=== PATIENT | female | born 1960 | race Caucasian/White ===

== ENCOUNTER → 2017-09-05 | Outpatient (CLI) | payer MEDICARE, OTHER ==
[~2017-09-05] MED LIST: ACCUNEB SO1.25 MG/1; ACETAMINOPHEN325 M1 PO; ADVAIR 250-501 EACH INH; ALBUTEROL INH; ALLEGRA ALLERGY60 MG; ALLEGRA60 MG PO; ALPRAZOLAM 0.50.5 MG PO; ALPRAZOLAM1 MG PO; AMBIEN 10 MG TA10 MG PO; AMOXICILLI250 MG/51 PO; AMOXICILLI400 MG/5 M PO; ANUSOL-HC25 MG RECTAL; AUGMENTIN 500-1 EACH PO; AUGMENTIN250 MG/5 M PO; B12INJ; BENADRYL25 MG PO; CITRATE OF MAG296 M1 PO; COMBIVENT INH; CREON DR 12,001 EACH; CYANOCOBALAM1000 MCG PO; CYPROHEPTADINE 44 M1; CYPROHEPTADINE 44 MG PO; CYTOMEL 5MCG TA5 MC1; CYTOMEL 5MCG TA5 MC1 NG; CYTOMEL 5MCG TA5 MCG NG; DESYREL100 MG PO; DESYREL50 MG; DESYREL50 MG PO; DILAUDID 4 MG TA4 M1 PO; DOLOPHINE HCL5 MG PO; DOXYCYCLINE 10100 MG PO; DUONEB 2.5-0.5 M3 ML INH; FEXOFENADINE HC60 MG PO; FLONASE 0.05%50 MCG NASAL; GAS-X180 MG; HYDROXYCHLOROQ200 M1 PO; LAMICTAL100 MG PO; LANSOPRAZOLE30 MG PO; LASIX 20 MG TAB20 MG PO; LEVAQUIN 500 M500 M1 PO; LEVAQUIN 500 M500 M2 PO; LEVOTHYROXIN0.025 MG PO; LINZESS290 MCG PO; MACROBID 100 M100 M1 PO; MEDROL DOSPAK21 TAB PO; METHADONE HCL5 MG PO; MIRTAZAPINE7.5 MG PO; MUCUS RELIEF600 MG PO; NORCO 5-325 TA1 EACH; NORCO 5-325 TA1 EACH PO; NORTRIPTYLINE H10 M1; NORTRIPTYLINE H25 M3 PO; NORTRIPTYLINE H50 MG PO; NYSTATIN 100,0015 G1 TP; NYSTATIN-TRIAMC15 GM TP; ONDANSETRON HCL4 M2 PO; ONDANSETRON HCL4 M3 PO; ONDANSETRON HCL8 MG PO; ONDANSETRON ODT4 MG PO; PAMELOR25 MG PO; PANCREAZE 10,51 EACH; PANCREAZE 10,51 EACH PO; PERCOCET; PERCOCET 5-3251 EACH; PHENAZOPYRIDIN200 M2 PO; PREDNISONE 10 M10 M1 PO; PREDNISONE 20 M20 M1 PO; PREVACID 24HR15 MG PO; PREVACID 30MG C30 M1 PO; PREVACID15 MG PO; PREVACID30 MG PO; PROAIR HFA8.5 GM PO; REMERON15 MG PO; SINGULAIR 10 MG10 M1 PO; SYNTHROID50 MCG PO; SYNTHROID88 MCG PO; TIZANIDINE HCL4 M1 PO; TOBREX5 ML OPHTHALMIC; TORADOL 10 MG T10 MG; TORADOL 10 MG T10 MG PO; TRAZODONE 150150 M1 PO; TRAZODONE HCL100 MG PO; TUSNEL LIQUID3840 ML PO; Trazodone PO; ULTRAM ER200 MG; URISPAS100 MG PO; VENTOLIN HFA 1818 GM INH; VITAMIN D 5050000 I1 PO; XANAX 0.5 MG0.5 M1 PO; XANAX XR0.5 MG PO; XANAX XR1 MG; XANAX XR1 MG PO; XANAX1 MG PO; ZANAFLEX4 M1; ZANAFLEX4 M1 PO; ZENPEP DR 10,01 EACH PO; ZOFRAN ODT4 MG PO; ZOFRAN4 MG DISSOLVE; ZOFRAN4 MG PO; ZOFRAN8 MG GT; ZOFRAN8 MG PO; ZOLOFT25 MG PO; ZPAK PO; [UNRECOGNIZED DRUG - OTHER]; [UNRECOGNIZED DRUG - OTHER]; [UNRECOGNIZED DRUG - OTHER] OTIC
[2017-09-05 16:47] LABS: ABSOLUTE EOSINOPHILS 0.1 thou/uL (0.0-0.7); ABSOLUTE MONOCYTES 0.3 thou/uL (0.0-1.2); BASOPHILS 0.6 %; EOSINOPHILS 1.6 %; HEMOGLOBIN 13.6 gm/dL (12.0-15.0); LYMPHOCYTES 14.9 %; MCH 28.1 pg (26.0-34.0); MCHC 33.2 g/dL (28.0-37.0); MCV 84.6 fL (80.0-100.0); MONOCYTES 4.2 %; MPV 7.2 fl. (7.2-11.1); NUCLEATED RBCS 0 /100WBC; PLATELET COUNT* 294 thou/uL (150-400); POLYS 78.7 %; RBC 4.84 mil/uL (4.20-5.00); RDW-CV 15.1 % (10.5-14.5); WBC 6.4 thou/uL (4.0-11.0)
[2017-09-05 17:01] LABS: ALBUMIN 3.8 g/dL (3.4-5.0); CALCIUM 8.4 mg/dL (8.5-10.1); CREATININE 0.7 mg/dL (0.6-1.3); POTASSIUM 4.1 mmol/L (3.5-5.1); TOTAL BILIRUBIN 0.3 mg/dL (<0.1-1.0); TOTAL PROTEIN 7.1 g/dL (6.4-8.2)
[2017-09-05 17:54] LABS: ESR (SEDRATE) 10 mm/hr (0-30)
[2017-09-11 10:24] LABS: % SATURATION 15 % (20-39); IRON 55 ug/dL (50-175)
== END ==
LOC: M.ULTRA 15:21
PROVIDERS: Nurse Practitioner Family
DX: E01.0 Iodine-deficiency related diffuse (endemic) goiter (principal); E55.9 Vitamin D deficiency, unspecified; I88.9 Nonspecific lymphadenitis, unspecified; D51.8 Other vitamin B12 deficiency anemias; R79.89 Other specified abnormal findings of blood chemistry; R53.83 Other fatigue; R22.1 Localized swelling, mass and lump, neck

== ENCOUNTER 2017-09-13 08:31 | Emergency (ER) | payer MEDICARE, OTHER ==
[~2017-09-13] VITALS: Ht 154.9 cm; Wt 68.0 kg
[~2017-09-13 08:31] MED LIST changes: -DOXYCYCLINE 10100 MG PO; -HYDROXYCHLOROQ200 M1 PO; -SYNTHROID88 MCG PO; -XANAX1 MG PO; -[UNRECOGNIZED DRUG - OTHER] OTIC
[2017-09-13] MEDS ORDERED: DOXYCYCLINE 10100 MG PO (08:47)
[2017-09-13] MEDS ORDERED: XANAX1 MG PO (08:47)
[2017-09-13] MEDS ORDERED: SYNTHROID88 MCG PO (08:47)
[2017-09-13 10:50] VITALS: BP 106/52
== END 2017-09-13 11:16 | disposition home or self-care (01) ==
LOC: M.ERS 08:31
DX: S52.592A Other fractures of lower end of left radius, initial encounter for closed fracture (principal); J45.909 Unspecified asthma, uncomplicated; M19.90 Unspecified osteoarthritis, unspecified site; F41.9 Anxiety disorder, unspecified; Z87.440 Personal history of urinary (tract) infections; Z87.442 Personal history of urinary calculi; Z88.5 Allergy status to narcotic agent; Z88.8 Allergy status to other drugs, medicaments and biological substances; Z88.2 Allergy status to sulfonamides; X50.1XXA Overexertion from prolonged static or awkward postures, initial encounter; Y93.89 Activity, other specified; Y92.89 Other specified places as the place of occurrence of the external cause; Y99.8 Other external cause status

== ENCOUNTER 2017-09-15 15:58 | Emergency (ER) | payer MEDICARE, OTHER ==
[~2017-09-15] VITALS: Ht 154.9 cm; Wt 68.0 kg
[~2017-09-15 15:58] MED LIST changes: +DOXYCYCLINE 10100 MG PO; +SYNTHROID88 MCG PO; +XANAX1 MG PO
[2017-09-15 16:09] VITALS: BP 141/60
== END 2017-09-15 16:57 | disposition home or self-care (01) ==
LOC: M.ERS 15:58
DX: S66.812A Strain of other specified muscles, fascia and tendons at wrist and hand level, left hand, initial encounter (principal); K31.84 Gastroparesis; J45.909 Unspecified asthma, uncomplicated; F41.9 Anxiety disorder, unspecified; Z87.442 Personal history of urinary calculi; Z88.5 Allergy status to narcotic agent; Z88.8 Allergy status to other drugs, medicaments and biological substances; Z88.2 Allergy status to sulfonamides; X58.XXXA Exposure to other specified factors, initial encounter; Y93.89 Activity, other specified; Y92.89 Other specified places as the place of occurrence of the external cause; Y99.8 Other external cause status

== ENCOUNTER → 2017-11-21 | Outpatient (CLI) | payer MEDICARE, OTHER ==
[~2017-11-21] MED LIST changes: +HYDROXYCHLOROQ200 M1 PO; +[UNRECOGNIZED DRUG - OTHER] OTIC
== END ==
LOC: M.RAD 13:37
DX: Z12.31 Encounter for screening mammogram for malignant neoplasm of breast (principal)

== ENCOUNTER → 2018-03-01 | Outpatient (CLI) | payer MEDICARE, OTHER | LOC: M.MRI 08:08 | DX: K11.20 Sialoadenitis, unspecified (principal); J45.909 Unspecified asthma, uncomplicated; M19.90 Unspecified osteoarthritis, unspecified site ==

== ENCOUNTER 2018-03-14 13:28 | Emergency (ER) | payer MEDICARE, OTHER ==
[~2018-03-14] VITALS: Ht 154.9 cm; Wt 68.0 kg
[~2018-03-14 13:28] MED LIST changes: -HYDROXYCHLOROQ200 M1 PO; -[UNRECOGNIZED DRUG - OTHER] OTIC
[2018-03-14] MEDS ORDERED: HYDROXYCHLOROQ200 M1 PO (13:40)
[2018-03-14 13:52] LABS: ABSOLUTE EOSINOPHILS 0.1 thou/uL (0.0-0.7); ABSOLUTE LYMPHOCYTES 1.1 thou/uL (0.8-5.3); ABSOLUTE MONOCYTES 0.5 thou/uL (0.0-1.2); ABSOLUTE NEUTROPHILS 4.1 thou/uL (1.6-8.1); BASOPHILS 0.8 %; EOSINOPHILS 2.4 %; HEMATOCRIT 38.9 % (37.0-47.0); HEMOGLOBIN 13.1 gm/dL (12.0-15.0); LYMPHOCYTES 18.5 %; MCH 28.6 pg (26.0-34.0); MCHC 33.8 g/dL (28.0-37.0); MCV 84.5 fL (80.0-100.0); MONOCYTES 9.1 %; NUCLEATED RBCS 0 /100WBC; PLATELET COUNT* 324 thou/uL (150-400); POLYS 69.2 %; RDW-CV 14.1 % (10.5-14.5); WBC 5.9 thou/uL (4.0-11.0)
[2018-03-14 14:06] LABS: APTT 29.2 Seconds (25.0-31.3); PROTIME 10.1 Seconds (9.20-11.50)
[2018-03-14 14:18] LABS: ANION GAP 6 mmol/L (7-16); BUN 15 mg/dL (7-18); CHLORIDE 107 mmol/L (98-107); CO2 29 mmol/L (21-32); CREATININE 0.8 mg/dL (0.6-1.3); GLUCOSE 108 mg/dL (70-99); POTASSIUM 4.1 mmol/L (3.5-5.1); SODIUM 142 mmol/L (136-145)
[2018-03-14 14:38] LABS: ALBUMIN 3.4 g/dL (3.4-5.0); ALKALINE PHOSPHATASE 58 U/L (46-116); CK-MB MASS < 0.5 ng/mL (<0.5-3.6); LIPASE 136 U/L (73-393); NT-PRO BRAIN NAT PEPTIDE 166 pg/mL (<300); SGOT 12 U/L (15-37); SGPT 14 U/L (30-65); TOTAL BILIRUBIN 0.2 mg/dL (<0.1-1.0); TOTAL PROTEIN 6.6 g/dL (6.4-8.2); TROPONIN-I LEVEL <0.06 ng/mL (<0.06)
[2018-03-14 14:56] VITALS: BP 110/64
--- NOTE | 2018-03-14 15:48 | EKG ---
[place] [address] ELECTROCARDIOGRAM REPORT Name: CLARKE AREVALOSHRAVAN Guerrero Room: [facility]#: [id number] Admission: 03/14/18 Attend Phys: Discharge: 03/14/18 Date of : 58 Report #: [id number] THIS REPORT FOR: //name// [facility] ED Test Date: 2018-03-14 Test Time: 13:34:46 Pat Name: SHRAVAN AREVALO Department: Room: Gender: F Methods Study Analyst: : 1960 Requested By: Yo Harding Order Number: [id number] MD: Agustin Bustillo Measurements Intervals [place] Rate: 63 P: 33 MD: 170 QRS: -19 QRSD: 102 T: 28 QT: 403 QTc: 413 Interpretive Statements Sinus rhythm Possible left atrial enlargement Borderline left axis deviation Low voltage, precordial leads Abnormal R-wave progression, early transition Compared to ECG 03/07/2017 11:31:07 No significant changes Electronically Signed On 03-14-2018 15:48:37 CDT by Agustin Bustillo [email or web address] <ELECTRONICALLY SIGNED> By: Agustin Bustillo MD, FACC 03/14/18 1548 1334 1334 Agustin Bustillo MD, FAC /EPI
== END 2018-03-14 14:58 | disposition home or self-care (01) ==
LOC: M.ERS 13:28
PROVIDERS: Family Medicine
DX: M25.512 Pain in left shoulder (principal); J45.909 Unspecified asthma, uncomplicated; M19.90 Unspecified osteoarthritis, unspecified site; Z87.01 Personal history of pneumonia (recurrent); Z87.440 Personal history of urinary (tract) infections; Z87.442 Personal history of urinary calculi; Z88.2 Allergy status to sulfonamides; Z88.5 Allergy status to narcotic agent; Z88.6 Allergy status to analgesic agent; Z88.8 Allergy status to other drugs, medicaments and biological substances; Z90.710 Acquired absence of both cervix and uterus; Z90.49 Acquired absence of other specified parts of digestive tract

== ENCOUNTER → 2018-03-18 | Outpatient (CLI) | payer MEDICARE, OTHER ==
[~2018-03-18] MED LIST changes: +HYDROXYCHLOROQ200 M1 PO; +[UNRECOGNIZED DRUG - OTHER] OTIC
== END ==
LOC: M.MRI 08:00
DX: M26.623 Arthralgia of bilateral temporomandibular joint (principal); J45.909 Unspecified asthma, uncomplicated; M19.90 Unspecified osteoarthritis, unspecified site

== ENCOUNTER 2018-04-14 12:43 | Emergency (ER) | payer MEDICARE, OTHER ==
[~2018-04-14] VITALS: Ht 154.9 cm; Wt 69.8 kg
[~2018-04-14 12:43] MED LIST changes: -[UNRECOGNIZED DRUG - OTHER] OTIC
[2018-04-14] MEDS ORDERED: HYDROXYCHLOROQ200 M1 PO (12:54)
[2018-04-14] MEDS ORDERED: [UNRECOGNIZED DRUG - OTHER] OTIC (12:56)
[2018-04-14 12:57] LABS: URINE BILIRUBIN NEGATIVE (Negative); URINE BLOOD NEGATIVE (Negative); URINE CLARITY CLEAR; URINE COLOR YELLOW; URINE GLUCOSE-RANDOM NEGATIVE (Negative); URINE KETONES NEGATIVE (Negative); URINE LEUKOCYTES-REFLEX NEGATIVE (Negative); URINE NITRITE-REFLEX NEGATIVE (Negative); URINE PROTEIN NEGATIVE (Negative); URINE SPECIFIC GRAVITY 1.025 (1.005-1.030); URINE UROBILINOGEN 0.2 E.U./dl (0.2-1.0)
[2018-04-14 13:18] LABS: ABSOLUTE EOSINOPHILS 0.1 thou/uL (0.0-0.7); ABSOLUTE LYMPHOCYTES 1.3 thou/uL (0.8-5.3); ABSOLUTE MONOCYTES 0.6 thou/uL (0.0-1.2); ABSOLUTE NEUTROPHILS 4.5 thou/uL (1.6-8.1); BASOPHILS 0.5 %; EOSINOPHILS 1.5 %; HEMATOCRIT 40.9 % (37.0-47.0); HEMOGLOBIN 13.5 gm/dL (12.0-15.0); LYMPHOCYTES 19.4 %; MCH 28.2 pg (26.0-34.0); MCHC 32.9 g/dL (28.0-37.0); MCV 85.5 fL (80.0-100.0); MONOCYTES 9.9 %; MPV 6.7 fl. (7.2-11.1); NUCLEATED RBCS 0 /100WBC; PLATELET COUNT* 319 thou/uL (150-400); POLYS 68.7 %; RBC 4.78 mil/uL (4.20-5.00); RDW-CV 14.4 % (10.5-14.5); WBC 6.5 thou/uL (4.0-11.0)
[2018-04-14 13:26] LABS: CALCIUM 8.3 mg/dL (8.5-10.1); CREATININE 0.8 mg/dL (0.6-1.3)
[2018-04-14 13:30] LABS: ALBUMIN 3.5 g/dL (3.4-5.0); TOTAL BILIRUBIN 0.2 mg/dL (<0.1-1.0); TOTAL PROTEIN 6.7 g/dL (6.4-8.2)
[2018-04-14 15:32] VITALS: BP 111/53
--- NOTE | 2018-04-16 16:50 | EKG ---
[place] [address] ELECTROCARDIOGRAM REPORT Name: BENTYE AREVALOSHRAVAN Guerrero Room: [facility]#: [id number] Admission: 04/14/18 Attend Phys: Discharge: 04/14/18 Date of : 58 Report #: [id number] THIS REPORT FOR: //name// [facility] ED Test Date: 2018-04-14 Test Time: 13:39:08 Pat Name: SHRAVAN AREVALO Department: Room: Gender: F Professor Of Art: : 1960 Requested By: Angelique Morrell Order Number: [id number] MD: Jose Elias Sin Measurements Intervals [place] Rate: 68 P: 34 IN: 162 QRS: -18 QRSD: 114 T: 15 QT: 409 QTc: 436 Interpretive Statements Sinus rhythm Borderline intraventricular conduction delay Low voltage, precordial leads Compared to ECG 03/14/2018 13:34:46 No significant changes Electronically Signed On 04-16-2018 16:49:53 CDT by Jose Elias Sin [email or web address] <ELECTRONICALLY SIGNED> By: Jose Elias iSn MD, [facility] 04/16/18 1649 1339 38 Jose Elias Sin MD, FACC /EPI
== END 2018-04-14 15:32 | disposition home or self-care (01) ==
LOC: M.ERS 12:43
PROVIDERS: Nurse Practitioner Family
DX: R10.12 Left upper quadrant pain (principal); J45.909 Unspecified asthma, uncomplicated; F41.9 Anxiety disorder, unspecified; M46.90 Unspecified inflammatory spondylopathy, site unspecified; Z88.5 Allergy status to narcotic agent; Z88.2 Allergy status to sulfonamides; Z88.8 Allergy status to other drugs, medicaments and biological substances; Z90.710 Acquired absence of both cervix and uterus; Z90.49 Acquired absence of other specified parts of digestive tract; Z87.442 Personal history of urinary calculi; Z87.440 Personal history of urinary (tract) infections

== ENCOUNTER → 2018-06-26 | Outpatient (CLI) | payer MEDICARE, OTHER ==
[~2018-06-26] MED LIST changes: +[UNRECOGNIZED DRUG - OTHER] OTIC
== END ==
LOC: M.ULTRA 06-18 16:02
DX: N64.4 Mastodynia (principal); R22.32 Localized swelling, mass and lump, left upper limb

== ENCOUNTER → 2018-11-18 | Outpatient (CLI) | payer MEDICARE, OTHER ==
[2018-11-18 14:23] LABS: ALBUMIN 3.8 g/dL (3.4-5.0); CALCIUM 8.7 mg/dL (8.5-10.1); CREATININE 0.8 mg/dL (0.6-1.3); POTASSIUM 4.1 mmol/L (3.5-5.1); TOTAL BILIRUBIN 0.3 mg/dL (<0.1-1.0)
== END ==
LOC: M.RAD 13:15
PROVIDERS: Nurse Practitioner Family
DX: M47.816 Spondylosis without myelopathy or radiculopathy, lumbar region (principal); R06.02 Shortness of breath; M47.814 Spondylosis without myelopathy or radiculopathy, thoracic region; M48.07 Spinal stenosis, lumbosacral region; M41.85 Other forms of scoliosis, thoracolumbar region; Z91.81 History of falling

== ENCOUNTER 2018-11-20 10:13 | Emergency (ER) | payer MEDICARE, OTHER ==
[~2018-11-20] VITALS: Ht 154.9 cm; Wt 67.1 kg
[2018-11-20 12:04] VITALS: BP 124/52
== END 2018-11-20 12:06 | disposition home or self-care (01) ==
LOC: M.ERS 10:13
DX: M25.561 Pain in right knee (principal); J45.909 Unspecified asthma, uncomplicated; F41.9 Anxiety disorder, unspecified; M41.9 Scoliosis, unspecified; M06.9 Rheumatoid arthritis, unspecified; K31.84 Gastroparesis; Z86.2 Personal history of diseases of the blood and blood-forming organs and certain disorders involving the immune mechanism; Z88.8 Allergy status to other drugs, medicaments and biological substances; Z87.442 Personal history of urinary calculi; Z91.048 Other nonmedicinal substance allergy status; Z88.5 Allergy status to narcotic agent; Z88.4 Allergy status to anesthetic agent; Z88.2 Allergy status to sulfonamides; Z90.710 Acquired absence of both cervix and uterus; Z90.49 Acquired absence of other specified parts of digestive tract

== ENCOUNTER 2019-02-16 10:58 | Emergency (ER) | payer MEDICARE, OTHER ==
[~2019-02-16] VITALS: Ht 154.9 cm; Wt 67.1 kg
[2019-02-16] MEDS ORDERED: CREON DR 3,0001 EACH PO (11:10)
[2019-02-16 11:35] LABS: URINE BILIRUBIN NEGATIVE (Negative); URINE BLOOD NEGATIVE (Negative); URINE CLARITY CLEAR; URINE COLOR YELLOW; URINE GLUCOSE-RANDOM NEGATIVE (Negative); URINE KETONES NEGATIVE (Negative); URINE LEUKOCYTES-REFLEX NEGATIVE (Negative); URINE NITRITE-REFLEX NEGATIVE (Negative); URINE PROTEIN NEGATIVE (Negative); URINE UROBILINOGEN 0.2 E.U./dl (0.2-1.0)
[2019-02-16 11:37] LABS: ABSOLUTE BASOPHILS 0.1 thou/uL (0.0-0.2); ABSOLUTE EOSINOPHILS 0.2 thou/uL (0.0-0.7); ABSOLUTE LYMPHOCYTES 1.3 thou/uL (0.8-5.3); ABSOLUTE MONOCYTES 0.6 thou/uL (0.0-1.2); ABSOLUTE NEUTROPHILS 3.5 thou/uL (1.6-8.1); EOSINOPHILS 3.7 %; HEMATOCRIT 43.1 % (37.0-47.0); HEMOGLOBIN 14.3 gm/dL (12.0-15.0); MCH 28.4 pg (26.0-34.0); MCHC 33.1 g/dL (28.0-37.0); MONOCYTES 11.2 %; MPV 7.2 fl. (7.2-11.1); NUCLEATED RBCS 0 /100WBC; PLATELET COUNT* 365 thou/uL (150-400); POLYS 61.1 %; RBC 5.02 mil/uL (4.20-5.00); WBC 5.8 thou/uL (4.0-11.0)
[2019-02-16 11:48] LABS: CALCIUM 8.6 mg/dL (8.5-10.1); CREATININE 0.7 mg/dL (0.6-1.3)
[2019-02-16 11:52] LABS: ALBUMIN 3.8 g/dL (3.4-5.0); TOTAL BILIRUBIN 0.3 mg/dL (<0.1-1.0); TOTAL PROTEIN 7.2 g/dL (6.4-8.2)
[2019-02-16 13:42] VITALS: BP 96/43
== END 2019-02-16 13:42 | disposition home or self-care (01) ==
LOC: M.ERS 10:58
PROVIDERS: Physician Assistant
DX: S16.1XXA Strain of muscle, fascia and tendon at neck level, initial encounter (principal); S70.01XA Contusion of right hip, initial encounter; J98.11 Atelectasis; J98.59 Other diseases of mediastinum, not elsewhere classified; J39.8 Other specified diseases of upper respiratory tract; R51 Headache; M25.561 Pain in right knee; R10.32 Left lower quadrant pain; F41.9 Anxiety disorder, unspecified; J45.909 Unspecified asthma, uncomplicated; M41.9 Scoliosis, unspecified; M35.00 Sjogren syndrome, unspecified; M06.9 Rheumatoid arthritis, unspecified; G89.29 Other chronic pain; M54.5 Low back pain; M54.2 Cervicalgia; Z87.442 Personal history of urinary calculi; Z87.440 Personal history of urinary (tract) infections; Z98.890 Other specified postprocedural states; Z90.49 Acquired absence of other specified parts of digestive tract; Z90.710 Acquired absence of both cervix and uterus; Z93.1 Gastrostomy status; Z88.5 Allergy status to narcotic agent; Z88.2 Allergy status to sulfonamides; Z88.8 Allergy status to other drugs, medicaments and biological substances; Z88.3 Allergy status to other anti-infective agents; W18.39XA Other fall on same level, initial encounter; Y92.89 Other specified places as the place of occurrence of the external cause; Y93.89 Activity, other specified; Y99.8 Other external cause status

== ENCOUNTER 2019-07-27 10:26 | Emergency (ER) | payer MEDICARE, OTHER ==
[~2019-07-27] VITALS: Ht 154.9 cm; Wt 68.0 kg
[~2019-07-27 10:26] MED LIST changes: +CREON DR 3,0001 EACH PO
[2019-07-27 10:42] LABS: URINE BILIRUBIN NEGATIVE (Negative); URINE BLOOD NEGATIVE (Negative); URINE CLARITY CLEAR; URINE COLOR YELLOW; URINE GLUCOSE-RANDOM NEGATIVE (Negative); URINE KETONES NEGATIVE (Negative); URINE LEUKOCYTES-REFLEX NEGATIVE (Negative); URINE NITRITE-REFLEX NEGATIVE (Negative); URINE PROTEIN NEGATIVE (Negative); URINE SPECIFIC GRAVITY <= 1.005 (1.005-1.030); URINE UROBILINOGEN 0.2 E.U./dl (0.2-1.0)
[2019-07-27 11:01] LABS: ABSOLUTE EOSINOPHILS 0.2 thou/uL (0.0-0.7); ABSOLUTE MONOCYTES 0.7 thou/uL (0.0-1.2); ABSOLUTE NEUTROPHILS 3.5 thou/uL (1.6-8.1); BASOPHILS 0.7 %; EOSINOPHILS 3.1 %; HEMATOCRIT 39.7 % (37.0-47.0); HEMOGLOBIN 13.7 gm/dL (12.0-15.0); LYMPHOCYTES 17.9 %; MCH 28.7 pg (26.0-34.0); MCHC 34.5 g/dL (28.0-37.0); MCV 83.2 fL (80.0-100.0); MONOCYTES 12.7 %; NUCLEATED RBCS 0 /100WBC; PLATELET COUNT* 309 thou/uL (150-400); POLYS 65.6 %; RBC 4.77 mil/uL (4.20-5.00); RDW-CV 14.2 % (10.5-14.5); WBC 5.3 thou/uL (4.0-11.0)
[2019-07-27 11:10] LABS: CALCIUM 8.1 mg/dL (8.5-10.1); CREATININE 0.9 mg/dL (0.6-1.3); POTASSIUM 4.1 mmol/L (3.5-5.1)
[2019-07-27 11:14] LABS: ALBUMIN 3.5 g/dL (3.4-5.0); TOTAL BILIRUBIN 0.4 mg/dL (<0.1-1.0); TOTAL PROTEIN 6.9 g/dL (6.4-8.2)
[2019-07-27 11:44] VITALS: BP 114/36
--- NOTE | 2019-07-28 10:11 | EKG ---
[place] [address] ELECTROCARDIOGRAM REPORT Name: SHRAVAN MACIAS Room: [facility]#: [id number] Admission: 07/27/19 Attend Phys: Discharge: 07/27/19 Date of : 58 Report #: [id number] THIS REPORT FOR: //name// [facility] ED Test Date: 2019-07-27 Test Time: 10:42:15 Pat Name: SHARVAN AREVALO Department: Room: Gender: F Firer Retort: : 1960 Requested By: Yo Harding Order Number: [id number] MD: Khris Gutierrez Measurements Intervals [place] Rate: 78 P: 41 [place]: 161 QRS: -28 QRSD: 99 T: 24 QT: 386 QTc: 440 Interpretive Statements Sinus rhythm Borderline left axis deviation Low voltage, precordial leads Compared to ECG 04/14/2018 13:39:08 No significant changes Electronically Signed On 07-28-2019 10:10:30 MOTOR BIKE MECHANIC by Khris Gutierrez [email or web address] <ELECTRONICALLY SIGNED> By: Khris Gutierrez MD, [facility] 07/28/19 [phone] Khris Gutierrez MD, [facility] /EPI
== END 2019-07-27 11:47 | disposition home or self-care (01) ==
LOC: M.ERS 10:26
PROVIDERS: Family Medicine
DX: R10.11 Right upper quadrant pain (principal); R10.31 Right lower quadrant pain; J45.909 Unspecified asthma, uncomplicated; F41.9 Anxiety disorder, unspecified; Z90.710 Acquired absence of both cervix and uterus; Z90.49 Acquired absence of other specified parts of digestive tract; Z87.440 Personal history of urinary (tract) infections; Z87.442 Personal history of urinary calculi; Z91.048 Other nonmedicinal substance allergy status; Z88.1 Allergy status to other antibiotic agents; Z88.2 Allergy status to sulfonamides; Z88.6 Allergy status to analgesic agent; Z88.8 Allergy status to other drugs, medicaments and biological substances

== ENCOUNTER 2019-08-08 11:14 | Emergency (ER) | payer MEDICARE, OTHER ==
[~2019-08-08] VITALS: Ht 154.9 cm; Wt 70.3 kg
--- NOTE | ~2019-08-08 | EKG ---
[place] [address] ELECTROCARDIOGRAM REPORT Name: SHRAVAN MACIAS Room: [facility]#: [id number] Admission: 08/08/19 Attend Phys: Discharge: Date of : 58 Date of Service: 08/08/19 1201 Report #: [id number] THIS REPORT FOR: cc: Rufus Cavazos Russell J. DO Epiphany, Epiphany MD ~ THIS REPORT FOR: //name// [facility] ED Test Date: 2019-08-08 Test Time: 12:01:11 Pat Name: SHRAVAN AREVALO Department: Room: Gender: F Honeycomb Decapper: BRAD : 1960 Requested By: Enedelia Royal Order Number: [id number] MD: Measurements Intervals [place] Rate: 75 P: 40 [place]: 172 QRS: -18 QRSD: 101 T: 13 QT: 403 QTc: 451 Interpretive Statements Sinus rhythm Probable left atrial enlargement Borderline left axis deviation Low voltage, precordial leads Borderline T abnormalities, anterior leads Compared to ECG 07/27/2019 10:42:15 T-wave abnormality now present [email or web address] By: 00 00 Epiphany EpiphanyMD /DELVIS
[2019-08-08 12:07] LABS: ABSOLUTE EOSINOPHILS 0.2 thou/uL (0.0-0.7); ABSOLUTE MONOCYTES 0.5 thou/uL (0.0-1.2); ABSOLUTE NEUTROPHILS 3.5 thou/uL (1.6-8.1); BASOPHILS 0.9 %; EOSINOPHILS 3.8 %; HEMATOCRIT 38.2 % (37.0-47.0); LYMPHOCYTES 18.9 %; MCH 28.4 pg (26.0-34.0); MCV 83.5 fL (80.0-100.0); MONOCYTES 9.6 %; MPV 7.3 fl. (7.2-11.1); NUCLEATED RBCS 0 /100WBC; PLATELET COUNT* 295 thou/uL (150-400); POLYS 66.8 %; RBC 4.57 mil/uL (4.20-5.00); RDW-CV 14.2 % (10.5-14.5); WBC 5.2 thou/uL (4.0-11.0)
[2019-08-08 12:36] LABS: CALCIUM 8.1 mg/dL (8.5-10.1); CREATININE 0.8 mg/dL (0.6-1.3); POTASSIUM 3.9 mmol/L (3.5-5.1)
[2019-08-08 12:40] LABS: ALBUMIN 3.5 g/dL (3.4-5.0); TOTAL BILIRUBIN 0.3 mg/dL (<0.1-1.0); TOTAL PROTEIN 6.9 g/dL (6.4-8.2)
[2019-08-08 12:55] LABS: URINE BILIRUBIN NEGATIVE (Negative); URINE BLOOD NEGATIVE (Negative); URINE CLARITY CLEAR; URINE COLOR YELLOW; URINE GLUCOSE-RANDOM NEGATIVE (Negative); URINE KETONES NEGATIVE (Negative); URINE LEUKOCYTES-REFLEX NEGATIVE (Negative); URINE NITRITE-REFLEX NEGATIVE (Negative); URINE PROTEIN NEGATIVE (Negative); URINE SPECIFIC GRAVITY >= 1.030 (1.005-1.030); URINE UROBILINOGEN 0.2 E.U./dl (0.2-1.0)
[2019-08-08 15:31] VITALS: BP 113/62
== END 2019-08-08 15:33 | disposition home or self-care (01) ==
LOC: M.ERS 11:14
PROVIDERS: Nurse Practitioner Family
DX: K59.09 Other constipation (principal); J45.909 Unspecified asthma, uncomplicated; M41.9 Scoliosis, unspecified; M06.9 Rheumatoid arthritis, unspecified; F41.9 Anxiety disorder, unspecified; Z90.710 Acquired absence of both cervix and uterus; Z90.49 Acquired absence of other specified parts of digestive tract; Z87.440 Personal history of urinary (tract) infections; Z87.442 Personal history of urinary calculi; Z91.048 Other nonmedicinal substance allergy status; Z88.2 Allergy status to sulfonamides; Z88.6 Allergy status to analgesic agent; Z88.8 Allergy status to other drugs, medicaments and biological substances

== ENCOUNTER 2020-02-29 10:39 | Emergency (ER) | payer MEDICARE, OTHER ==
[~2020-02-29] VITALS: Ht 154.9 cm; Wt 68.0 kg
[2020-02-29 10:52] LABS: URINE BILIRUBIN NEGATIVE (Negative); URINE BLOOD NEGATIVE (Negative); URINE CLARITY CLEAR; URINE COLOR YELLOW; URINE GLUCOSE-RANDOM NEGATIVE (Negative); URINE KETONES NEGATIVE (Negative); URINE LEUKOCYTES-REFLEX NEGATIVE (Negative); URINE NITRITE-REFLEX NEGATIVE (Negative); URINE PROTEIN NEGATIVE (Negative); URINE UROBILINOGEN 0.2 E.U./dl (0.2-1.0)
[2020-02-29 11:10] LABS: ABSOLUTE EOSINOPHILS 0.1 thou/uL (0.0-0.7); ABSOLUTE LYMPHOCYTES 0.8 thou/uL (0.8-5.3); ABSOLUTE MONOCYTES 0.5 thou/uL (0.0-1.2); ABSOLUTE NEUTROPHILS 3.3 thou/uL (1.6-8.1); EOSINOPHILS 2.9 %; LYMPHOCYTES 17.3 %; MCH 28.2 pg (26.0-34.0); MCHC 34.1 g/dL (28.0-37.0); MCV 82.7 fL (80.0-100.0); MONOCYTES 9.7 %; MPV 7.3 fl. (7.2-11.1); NUCLEATED RBCS 0 /100WBC; PLATELET COUNT* 298 thou/uL (150-400); POLYS 69.1 %; RBC 4.96 mil/uL (4.20-5.00); RDW-CV 14.4 % (10.5-14.5); WBC 4.7 thou/uL (4.0-11.0)
[2020-02-29 11:18] LABS: CALCIUM 8.3 mg/dL (8.5-10.1); POTASSIUM 3.9 mmol/L (3.5-5.1)
[2020-02-29 11:22] LABS: ALBUMIN 3.4 g/dL (3.4-5.0); TOTAL BILIRUBIN 0.4 mg/dL (<0.1-1.0); TOTAL PROTEIN 6.7 g/dL (6.4-8.2)
[2020-02-29 12:26] VITALS: BP 105/48
--- NOTE | 2020-03-01 09:55 | EKG ---
[place] [address] ELECTROCARDIOGRAM REPORT Name: SHRAVAN MACIAS Room: [facility]#: [id number] Admission: 02/29/20 Attend Phys: Discharge: 02/29/20 Date of : 58 Date of Service: 02/29/20 1055 Report #: [id number] THIS REPORT FOR: //name// [facility] ED Test Date: 2020-02-29 Test Time: 10:55:25 Pat Name: SHRAVAN AREVALO Department: Room: Gender: F City Councilman: CCD : 1960 Requested By: Yo Harding Order Number: [id number] MD: Jose Elias Sin Measurements Intervals [place] Rate: 70 P: 44 [place]: 150 QRS: -25 QRSD: 93 T: 24 QT: 394 QTc: 426 Interpretive Statements Sinus rhythm Borderline left axis deviation Low voltage, precordial leads Compared to ECG 08/08/2019 12:01:11 T-wave abnormality no longer present Electronically Signed On 03-01-2020 9:54:52 CDT by Jose Elias Sin [email or web address] <ELECTRONICALLY SIGNED> By: Jose Elias Sin MD, [facility] 03/01/20 0954 1055 1055 Jose Elias Sin MD, [facility] /EPI
== END 2020-02-29 12:27 | disposition home or self-care (01) ==
LOC: M.ERS 10:39
PROVIDERS: Family Medicine
DX: R10.32 Left lower quadrant pain (principal); J45.909 Unspecified asthma, uncomplicated; M46.90 Unspecified inflammatory spondylopathy, site unspecified; M06.9 Rheumatoid arthritis, unspecified; G89.29 Other chronic pain; Z88.5 Allergy status to narcotic agent; Z88.2 Allergy status to sulfonamides; Z88.8 Allergy status to other drugs, medicaments and biological substances; Z90.710 Acquired absence of both cervix and uterus; Z90.49 Acquired absence of other specified parts of digestive tract; Z87.01 Personal history of pneumonia (recurrent); Z87.440 Personal history of urinary (tract) infections; Z87.442 Personal history of urinary calculi

== ENCOUNTER 2020-03-05 11:50 | Emergency (ER) | payer MEDICARE, OTHER ==
[~2020-03-05] VITALS: Ht 154.9 cm; Wt 66.2 kg
[2020-03-05 12:15] LABS: URINE BLOOD NEGATIVE (Negative); URINE CLARITY CLEAR; URINE COLOR YELLOW; URINE GLUCOSE-RANDOM NEGATIVE (Negative); URINE LEUKOCYTES-REFLEX NEGATIVE (Negative); URINE NITRITE-REFLEX NEGATIVE (Negative); URINE PROTEIN 1+ (Negative); URINE SPECIFIC GRAVITY >= 1.030 (1.005-1.030); URINE UROBILINOGEN 0.2 E.U./dl (0.2-1.0)
[2020-03-05 12:20] LABS: ICTOTEST (BILI CONFIRMATORY) Negative (Negative); URINE BILIRUBIN 2+ (Negative); URINE KETONES 3+ (Negative)
[2020-03-05 12:24] LABS: ABSOLUTE EOSINOPHILS 0.1 thou/uL (0.0-0.7); ABSOLUTE LYMPHOCYTES 0.9 thou/uL (0.8-5.3); ABSOLUTE MONOCYTES 0.5 thou/uL (0.0-1.2); ABSOLUTE NEUTROPHILS 3.8 thou/uL (1.6-8.1); BASOPHILS 0.5 %; EOSINOPHILS 2.3 %; HEMATOCRIT 41.5 % (37.0-47.0); HEMOGLOBIN 14.5 gm/dL (12.0-15.0); LYMPHOCYTES 16.6 %; MCH 28.6 pg (26.0-34.0); MCHC 34.9 g/dL (28.0-37.0); MCV 81.9 fL (80.0-100.0); MONOCYTES 9.4 %; MPV 6.8 fl. (7.2-11.1); NUCLEATED RBCS 0 /100WBC; PLATELET COUNT* 318 thou/uL (150-400); POLYS 71.2 %; RBC 5.06 mil/uL (4.20-5.00); RDW-CV 14.3 % (10.5-14.5); WBC 5.4 thou/uL (4.0-11.0)
[2020-03-05 12:32] LABS: CALCIUM 8.4 mg/dL (8.5-10.1); CREATININE 0.9 mg/dL (0.6-1.3); POTASSIUM 3.3 mmol/L (3.5-5.1)
[2020-03-05 12:36] LABS: ALBUMIN 3.8 g/dL (3.4-5.0); TOTAL BILIRUBIN 0.7 mg/dL (<0.1-1.0); TOTAL PROTEIN 7.1 g/dL (6.4-8.2)
[2020-03-05] MEDS ORDERED: XIFAXAN550 M1 PO (15:50)
[2020-03-05] MEDS ORDERED: LOPERAMIDE 2 MG2 M1 PO (15:50)
[2020-03-05 16:33] VITALS: BP 118/51
--- NOTE | 2020-03-05 16:41 | EKG ---
[place] [address] ELECTROCARDIOGRAM REPORT Name: SHRAVAN MACIAS Room: [facility]#: [id number] Admission: 03/05/20 Attend Phys: Discharge: 03/05/20 Date of : 58 Date of Service: 03/05/20 1220 Report #: [id number] THIS REPORT FOR: //name// [facility] ED Test Date: 2020-03-05 Test Time: 12:20:46 Pat Name: SHRAVAN AREVALO Department: Room: Gender: F Bingo Checker: CRISTIAN : 1960 Requested By: Megan Garcia Order Number: [id number] MD: Jose Elias Sin Measurements Intervals [place] Rate: 68 P: 51 [place]: 154 QRS: -2 QRSD: 101 T: 42 QT: 415 QTc: 442 Interpretive Statements Sinus rhythm Baseline wander in lead(s) II,III,aVF,V6 Compared to ECG 02/29/2020 10:55:25 No significant changes Electronically Signed On 03-05-2020 16:41:05 CDT by Jose Elias Sin [email or web address] <ELECTRONICALLY SIGNED> By: Jose Elias Sin MD, FAC 03/05/20 1641 1220 1220 Jose Elias Sin MD, FAC /EPI
== END 2020-03-05 16:33 | disposition home or self-care (01) ==
LOC: M.ERS 11:50
PROVIDERS: Physician Assistant
DX: R10.32 Left lower quadrant pain (principal); R19.7 Diarrhea, unspecified; Z20.828 Contact with and (suspected) exposure to other viral communicable diseases; E11.43 Type 2 diabetes mellitus with diabetic autonomic (poly)neuropathy; K31.84 Gastroparesis; J45.909 Unspecified asthma, uncomplicated; M46.90 Unspecified inflammatory spondylopathy, site unspecified; M06.9 Rheumatoid arthritis, unspecified; G89.29 Other chronic pain; Z88.5 Allergy status to narcotic agent; Z88.1 Allergy status to other antibiotic agents; Z88.2 Allergy status to sulfonamides; Z88.8 Allergy status to other drugs, medicaments and biological substances; Z90.710 Acquired absence of both cervix and uterus; Z90.49 Acquired absence of other specified parts of digestive tract; Z87.01 Personal history of pneumonia (recurrent); Z87.440 Personal history of urinary (tract) infections; Z87.442 Personal history of urinary calculi

== ENCOUNTER 2020-03-06 13:18 | Emergency (ER) | payer MEDICARE, OTHER ==
[~2020-03-06] VITALS: Ht 154.9 cm; Wt 66.2 kg
[~2020-03-06 13:18] MED LIST changes: +LOPERAMIDE 2 MG2 M1 PO; +XIFAXAN550 M1 PO
[2020-03-06 14:03] LABS: ABSOLUTE EOSINOPHILS 0.1 thou/uL (0.0-0.7); ABSOLUTE LYMPHOCYTES 0.8 thou/uL (0.8-5.3); ABSOLUTE MONOCYTES 0.6 thou/uL (0.0-1.2); ABSOLUTE NEUTROPHILS 4.5 thou/uL (1.6-8.1); BASOPHILS 0.7 %; EOSINOPHILS 2.3 %; HEMATOCRIT 37.4 % (37.0-47.0); LYMPHOCYTES 12.9 %; MCH 28.6 pg (26.0-34.0); MCHC 34.7 g/dL (28.0-37.0); MCV 82.5 fL (80.0-100.0); MONOCYTES 9.3 %; MPV 6.9 fl. (7.2-11.1); NUCLEATED RBCS 0 /100WBC; PLATELET COUNT* 287 thou/uL (150-400); POLYS 74.8 %; RBC 4.54 mil/uL (4.20-5.00); RDW-CV 14.7 % (10.5-14.5)
[2020-03-06 14:05] LABS: URINE BLOOD NEGATIVE (Negative); URINE CLARITY CLEAR; URINE COLOR YELLOW; URINE GLUCOSE-RANDOM NEGATIVE (Negative); URINE LEUKOCYTES-REFLEX NEGATIVE (Negative); URINE NITRITE-REFLEX NEGATIVE (Negative); URINE PROTEIN TRACE (Negative); URINE SPECIFIC GRAVITY >= 1.030 (1.005-1.030)
[2020-03-06 14:09] LABS: ICTOTEST (BILI CONFIRMATORY) Negative (Negative); URINE BILIRUBIN 2+ (Negative); URINE KETONES 3+ (Negative)
[2020-03-06 14:12] LABS: CALCIUM 7.9 mg/dL (8.5-10.1); CREATININE 0.9 mg/dL (0.6-1.3); POTASSIUM 3.4 mmol/L (3.5-5.1)
[2020-03-06 14:47] VITALS: BP 122/55
== END 2020-03-06 14:48 | disposition home or self-care (01) ==
LOC: M.ERS 13:18
PROVIDERS: Nurse Practitioner Psychiatric/Mental Health
DX: R19.7 Diarrhea, unspecified (principal); K31.84 Gastroparesis; J45.909 Unspecified asthma, uncomplicated; M06.9 Rheumatoid arthritis, unspecified; M41.9 Scoliosis, unspecified; M46.90 Unspecified inflammatory spondylopathy, site unspecified; Z90.710 Acquired absence of both cervix and uterus; Z90.49 Acquired absence of other specified parts of digestive tract; Z87.01 Personal history of pneumonia (recurrent); Z87.440 Personal history of urinary (tract) infections; Z87.442 Personal history of urinary calculi; Z88.5 Allergy status to narcotic agent; Z88.2 Allergy status to sulfonamides; Z88.8 Allergy status to other drugs, medicaments and biological substances

== ENCOUNTER 2020-04-05 14:05 | Emergency (ER) | payer MEDICARE, OTHER ==
[~2020-04-05] VITALS: Ht 154.9 cm; Wt 62.6 kg
[2020-04-05] MEDS ORDERED: PEPCID20 MG PO (14:15)
[2020-04-05 15:10] LABS: ABSOLUTE BASOPHILS 0.1 thou/uL (0.0-0.2); ABSOLUTE EOSINOPHILS 0.1 thou/uL (0.0-0.7); ABSOLUTE MONOCYTES 0.7 thou/uL (0.0-1.2); ABSOLUTE NEUTROPHILS 4.8 thou/uL (1.6-8.1); BASOPHILS 1.2 %; EOSINOPHILS 1.9 %; HEMATOCRIT 40.1 % (37.0-47.0); HEMOGLOBIN 13.8 gm/dL (12.0-15.0); LYMPHOCYTES 14.5 %; MCH 28.7 pg (26.0-34.0); MCHC 34.3 g/dL (28.0-37.0); MCV 83.7 fL (80.0-100.0); MONOCYTES 10.7 %; MPV 6.8 fl. (7.2-11.1); NUCLEATED RBCS 0 /100WBC; PLATELET COUNT* 330 thou/uL (150-400); POLYS 71.7 %; RDW-CV 14.9 % (10.5-14.5); WBC 6.7 thou/uL (4.0-11.0)
[2020-04-05 15:18] LABS: CALCIUM 8.5 mg/dL (8.5-10.1); POTASSIUM 3.9 mmol/L (3.5-5.1)
[2020-04-05 15:20] LABS: URINE BILIRUBIN NEGATIVE (Negative); URINE BLOOD NEGATIVE (Negative); URINE CLARITY CLEAR; URINE COLOR YELLOW; URINE GLUCOSE-RANDOM NEGATIVE (Negative); URINE KETONES NEGATIVE (Negative); URINE LEUKOCYTES-REFLEX NEGATIVE (Negative); URINE NITRITE-REFLEX NEGATIVE (Negative); URINE PROTEIN NEGATIVE (Negative); URINE SPECIFIC GRAVITY >= 1.030 (1.005-1.030); URINE UROBILINOGEN 0.2 E.U./dl (0.2-1.0)
[2020-04-05 15:23] LABS: ALBUMIN 3.7 g/dL (3.4-5.0); TOTAL BILIRUBIN 0.4 mg/dL (<0.1-1.0); TOTAL PROTEIN 6.9 g/dL (6.4-8.2)
[2020-04-05 17:32] VITALS: BP 111/58
--- NOTE | 2020-04-06 09:32 | EKG ---
[place] [address] ELECTROCARDIOGRAM REPORT Name: SHRAVAN MACIAS Room: [facility]#: [id number] Admission: 04/05/20 Attend Phys: Discharge: 04/05/20 Date of : 58 Date of Service: 04/05/20 1528 Report #: [id number] THIS REPORT FOR: //name// [facility] ED Test Date: 2020-04-05 Test Time: 15:28:39 Pat Name: SHRAVAN AREVALO Department: Room: Gender: F High School Counselor: SHERRY : 1960 Requested By: Stephani Dotson Order Number: [id number] MD: Khris Gutierrez Measurements Intervals [place] Rate: 71 P: 44 [place]: 168 QRS: -19 QRSD: 103 T: 30 QT: 407 QTc: 443 Interpretive Statements Sinus rhythm Borderline left axis deviation Low voltage, precordial leads Baseline wander in lead(s) II,III,aVF Compared to ECG 03/05/2020 12:20:46 Low QRS voltage now present Electronically Signed On 04-06-2020 9:32:24 CDT by Khris Gutierrez [email or web address] <ELECTRONICALLY SIGNED> By: Khris Gutierrez MD, FACC 04/06/20 0932 1528 1528 Khris Gutierrez MD, FAC /EPI
== END 2020-04-05 17:32 | disposition home or self-care (01) ==
LOC: M.ERS 14:05
PROVIDERS: Personal Emergency Response Attendant
DX: E86.0 Dehydration (principal); K50.90 Crohn's disease, unspecified, without complications; J45.909 Unspecified asthma, uncomplicated; M19.90 Unspecified osteoarthritis, unspecified site; Z88.8 Allergy status to other drugs, medicaments and biological substances; Z88.2 Allergy status to sulfonamides; Z88.1 Allergy status to other antibiotic agents; Z88.6 Allergy status to analgesic agent; Z98.84 Bariatric surgery status; Z90.710 Acquired absence of both cervix and uterus; Z90.49 Acquired absence of other specified parts of digestive tract; Z87.442 Personal history of urinary calculi; Z79.899 Other long term (current) drug therapy

== ENCOUNTER → 2020-04-22 | Outpatient (CLI) | payer MEDICARE, OTHER ==
[~2020-04-22] MED LIST changes: +PEPCID20 MG PO
== END ==
LOC: M.RAD 14:56
PROVIDERS: ATTEND Family Medicine
DX: Z12.31 Encounter for screening mammogram for malignant neoplasm of breast (principal); N64.89 Other specified disorders of breast

== ENCOUNTER → 2020-04-27 | Outpatient (CLI) | payer MEDICARE, OTHER ==
--- NOTE | 2020-04-27 20:11 | CARDNUC ---
[place] [address] CARDIAC NUCLEAR IMAGING REPORT Name: SHRAVAN MACIAS MAUREEN Room: [facility]#: [id number] Admission: 04/27/20 Attend Phys: Agustin Bustillo, Discharge: Date of : 58 Date of Service: 04/27/202010 Report #: [id number] THIS REPORT FOR: cc: Rufus Cavazos Russell J. DO Liston, Michael J. MD [facility] ~ APPROVED REPORT Imaging Protocol: Rest Tc-99m/Stress Tc-99m 1 day Study performed: 04/27/2020 13:45:00 Indication: Chest pain, STARK, Diaphoresis, Flutters/palpitations, malaise/fatigue. Patient Location: Out-Patient Stress Tech: Edwina Rangel Stress Nurse: Radha Florence RN NM Tech:RENEE Izaguirre Ht: 5 ft 1 in Wt: 138 lbs BSA: 1.61 m2 BMI: 26.07 Medical History Medical History: Chest pain, STARK, pericardial effusion, diaphoresis, flutters/palpitations, Sjogrens Syndrome, Joon Danlos Syndrome, Hypothyroidism, scoliosis, malaise/fatigue, weight loss, ABD pain, crohns disease, generalized overall pain/weakness. Medications: No cardiac medications. Allergies: Multiple medication allergies/see medication/pharmacy list. Cardiac Risk Factors: Age, FHX of CAD, SOB, flutters/palpitations, chest pain. Previous Cardiac Procedures: None Pretest Chest Pain Characteristics: No chest pain Exercise History: Indeterminate Physical Disabilities: Multiple autoimmune diseases, Joon-Danlos Syndrome, malaise/fatigue, scoliosis, generalized pain/weakness. Meds Held (24 hrs): None Resting Data Rest SPECT myocardial perfusion imaging was performed in supine position 30 minutes following the intravenous injection of 10.0 mCi of Tc-99m Sestamibi. Time of rest injection: 1410 Date: 04/27/2020 The images were gated to evaluate regional [place] [address] CARDIAC NUCLEAR IMAGING REPORT Name: SHRAVAN MACIAS Room: [facility]#: [id number] Admission: 04/27/20 Attend Phys: Agustin Bustillo, Discharge: Date of : 58 Date of Service: 04/27/202010 Report #: [id number] left ventricular ejection fraction. Administration Route: IV Administration Site: Right AC Pharmacologic Stress Pharmacologic stress test was performed by injecting Regadenoson 0.4 mg IV push over 10-15 seconds immediately followed by the intravenous injection of 30.9 mCi of Tc-99m Sestamibi. Time of stress injection: 1600 Date: 04/27/2020 Administration Route: IV Administration Site: Right AC Gated Stress SPECT was performed 40 minutes after stress injection. The images were gated to evaluate regional wall motion and calculate left ventricular ejection fraction. Stress Test Details Stress Test: Pharmacologic stress testing performed using 0.4 mg of regadenoson per 5 mL given IV over 10 seconds. Reason for pharmacologic stress test: Multiple autoimmune diseases, Joon-Danlos Syndrome, malaise/fatigue, scoliosis, generalized pain/weakness.. HR Max Heart Rate (APMHR): 160 bpm Resting HR: 56 bpm Target HR (85% APMHR): 136 bpm Max HR Achieved: 120 bpm % of APMHR: 75 Recovery HR: 94 bpm BP Resting BP: 102/64 mmHg Max BP: 132/71 mmHg Recovery BP: 118/71 mmHg ECG Resting ECG: Sinus Rhythm Stress ECG: Sinus Tachycardia ST Change: None Arrhythmia: None Recovery ECG: Sinus Rhythm Recovery ST Change: None Recovery Arrhythmia: None Clinical Reason for Termination: Completed protocol Stress Symptoms: left arm pain 8/10, dizziness, headache, chest pain 8/10, jaw pain, dyspnea, [place] [address] CARDIAC NUCLEAR IMAGING REPORT Name: SHRAVAN MACIAS Room: [facility]#: [id number] Admission: 04/27/20 Attend Phys: Agustin Bustillo, Discharge: Date of : 58 Date of Service: 04/27/202010 Report #: [id number] Exercise duration: 00 min 00 sec Exercise capacity: 1.00 METs The patient tolerated walking Lexiscan protocol without significant cardiac symptoms. Nurse Comments A 59 year old female presented for a sitting Lexiscan r/t chest pain, STARK, flutters, palpitations, malaise/fatigue. Test tolerated. Recovery completed with some continued symptoms that patient reported were improving. Patient was escorted via wheelchair to Nuclear Medicine for imaging. Patient was stable at that time. Stress ECG Conclusion Baseline twelve-lead EKG shows sinus rhythm without significant ST segment or T wave abnormality. EKGs obtained during and post walking Lexiscan protocol show sinus rhythm and sinus tachycardia with no significant ST segment or T wave changes when compared to baseline. There were no stress-induced arrhythmias. Study Quality Study: Good Artifact: No artifact Study Data At rest, the left ventricular ejection fraction was 81%.. Post stress, the left ventricular ejection was 75%.. TID = 1.08. Perfusion Perfusion images obtained at rest and post Lexiscan stress show uniform uptake of the radioisotope throughout the myocardium. There were no defects to suggest infarct or ischemia. Wall Motion Normal left ventricular wall motion. Nuclear Conclusion ECG Findings: negative for ischemia Clinical Findings: negative for ischemia Nuclear Findings: negative for ischemia Exercise Capacity: not assessed Left Ventricular Function: normal Risk Study: low Myocardial perfusion images show no defect to suggest infarct or ischemia. Left ventricular systolic function appears normal on gated studies. This [place] [address] CARDIAC NUCLEAR IMAGING REPORT Name: SHRAVAN MACIAS Room: [facility]#: [id number] Admission: 04/27/20 Attend Phys: Agustin Bustillo, Discharge: Date of : 58 Date of Service: 04/27/202010 Report #: [id number] <Conclusion> Baseline twelve-lead EKG shows sinus rhythm without significant ST segment or T wave abnormality. EKGs obtained during and post walking Lexiscan protocol show sinus rhythm and sinus tachycardia with no significant ST segment or T wave changes when compared to baseline. There were no stress-induced arrhythmias. <ELECTRONICALLY SIGNED> By: Agustin Bustillo MD, FACC 04/27/202010 10 10 Agustin Bustillo MD, FACC /INF
--- NOTE | 2020-04-27 20:19 | 2DMMODE ---
[place] [address] 2 D/M-MODE ECHOCARDIOGRAM Name: CLARKE AREVALOCHIPSHRAVAN JERI Room: [facility]#: [id number] Admission: 04/27/20 Attend Phys: Agustin Bustillo, Discharge: Date of : 58 Date of Service: 04/27/202017 Report #: [id number] THIS REPORT FOR: cc: Rufus Cavazos Russell J. DO Liston, Michael J. MD [facility] ~ APPROVED REPORT Study performed: 04/27/2020 12:52:16 EXAM: Comprehensive 2D, Doppler, and color-flow Echocardiogram Patient Location: Out-Patient BSA: 1.61 HR: 55 bpm BP: 100/60 mmHg Other Information Study Quality: Good Indications Dyspnea 2D Dimensions IVSd: 9.91 (7-11mm) LVOT Diam: 20.03 (18-24mm) LVDd: 43.68 mm PWd: 8.47 (7-11mm) Ascending Ao: 26.12 (22-36mm) LVDs: 26.34 (25-40mm) Aortic Root: 26.94 mm Volumes Left Atrial Volume (Systole) LA ESV Index: 15.70 mL/m2 Aortic Valve AoV Peak Yasir.: 0.92 m/s AO Peak Gr.: 3.37 mmHg LVOT Max P.97 mmHg AO Mean Gr.: 1.98 mmHg LVOT Mean P.37 mmHg LVOT Max V: 0.86 m/s AO V2 VTI: 20.61 cm LVOT Mean V: 0.53 m/s BRYANT (VTI): 3.07 cm2 LVOT V1 VTI: 20.12 cm Mitral Valve E/A Ratio: 1.03 [place] [address] 2 D/M-MODE ECHOCARDIOGRAM Name: SHRAVAN MACIAS Room: [facility]#: [id number] Admission: 04/27/20 Attend Phys: Agustin Bustillo, Discharge: Date of : 58 Date of Service: 04/27/202017 Report #: [id number] MV Decel. Time: 180.26 ms MV E Max Yasir.: 0.47 m/s MV PHT: 52.28 ms MVA (PHT): 4.21 cm2 TDI E/Lateral E': 5.22 E/Medial E': 5.88 Medial E' Yasir.: 0.08 m/s Lateral E' Yasir.: 0.09 m/s Pulmonary Valve PV Peak Yasir.: 0.74 m/s PV Peak Gr.: 2.19 mmHg Tricuspid Valve RAP Estimate: 5.00 mmHg TR Peak Gr.: 17.99 mmHg RVSP: 22.99 mmHg PA Pressure: 22.99 mmHg Left Ventricle The left ventricle is normal size. There is normal LV segmental wall motion. There is normal left ventricular wall thickness. Left ventricular systolic function is normal. LVEF is 55-60%. The left ventricular diastolic function is normal. Right Ventricle The right ventricle is normal size. The right ventricular systolic function is normal. Atria The left atrium size is normal. The right atrium size is normal. Aortic Valve The aortic valve is normal in structure. No aortic regurgitation is present. There is no aortic valvular stenosis. Mitral Valve The mitral valve is normal in structure. Mild mitral regurgitation. No evidence of mitral valve stenosis. Tricuspid Valve The tricuspid valve is normal in structure. Mild tricuspid regurgitation. Pulmonic Valve The pulmonary valve is normal in structure[place] [address] 2 D/M-MODE ECHOCARDIOGRAM Name: SHRAVAN MACIAS Room: [facility]#: [id number] Admission: 04/27/20 Attend Phys: Agustin Bustillo, Discharge: Date of : 58 Date of Service: 04/27/202017 Report #: [id number] regurgitation. Great Vessels The aortic root is normal in size. IVC is normal in size and collapses >50% with inspiration. Pericardium There is no pericardial effusion. <Conclusion> The left ventricle is normal size. There is normal left ventricular wall thickness. Left ventricular systolic function is normal. LVEF is 55-60%. The left ventricular diastolic function is normal. Mild mitral regurgitation. Mild tricuspid regurgitation. Mild pulmonic regurgitation. IVC is normal in size and collapses >50% with inspiration. <ELECTRONICALLY SIGNED> By: Agustin Bustillo MD, FACC 04/27/202017 17 17 Agustin Bustillo MD, FACC /INF
== END ==
LOC: M.NUC 04-06 12:57 → M.CRD 12:27 → M.NUC 04-28 13:00
PROVIDERS: ATTEND Internal Medicine Cardiovascular Disease
DX: I08.8 Other rheumatic multiple valve diseases (principal); I31.3 Pericardial effusion (noninflammatory)

== ENCOUNTER 2020-06-16 13:38 | Emergency (ER) | payer MEDICARE, OTHER ==
[~2020-06-16] VITALS: Ht 154.9 cm; Wt 61.7 kg
[2020-06-16 15:21] VITALS: BP 123/74
== END 2020-06-16 15:21 | disposition home or self-care (01) ==
LOC: M.ERS 13:38
DX: M65.4 Radial styloid tenosynovitis [de Quervain] (principal); J44.9 Chronic obstructive pulmonary disease, unspecified; M19.90 Unspecified osteoarthritis, unspecified site; Z98.84 Bariatric surgery status; Z79.899 Other long term (current) drug therapy; Z88.6 Allergy status to analgesic agent; Z88.8 Allergy status to other drugs, medicaments and biological substances; Z88.2 Allergy status to sulfonamides; Z90.710 Acquired absence of both cervix and uterus; Z90.49 Acquired absence of other specified parts of digestive tract; Z87.442 Personal history of urinary calculi

== ENCOUNTER → 2020-09-03 | Outpatient (CLI) | payer MEDICARE, OTHER | LOC: M.LAB 14:37 | PROVIDERS: ATTEND Orthopaedic Surgery | DX: Z01.812 Encounter for preprocedural laboratory examination (principal); Z20.822 Contact with and (suspected) exposure to COVID-19 ==

== ENCOUNTER → 2020-10-18 | Outpatient (CLI) | payer MEDICARE, OTHER | LOC: M.RAD 10:14 | PROVIDERS: ATTEND Orthopaedic Surgery | DX: M18.12 Unilateral primary osteoarthritis of first carpometacarpal joint, left hand (principal) ==

== ENCOUNTER 2020-11-21 11:51 | Emergency (ER) | payer MEDICARE, OTHER ==
[~2020-11-21] VITALS: Ht 154.9 cm; Wt 59.0 kg
[2020-11-21 12:18] LABS: URINE BILIRUBIN NEGATIVE (Negative); URINE BLOOD NEGATIVE (Negative); URINE CLARITY CLEAR; URINE COLOR YELLOW; URINE GLUCOSE-RANDOM NEGATIVE (Negative); URINE KETONES NEGATIVE (Negative); URINE LEUKOCYTES NEGATIVE (Negative); URINE NITRITE NEGATIVE (Negative); URINE PROTEIN NEGATIVE (Negative); URINE SPECIFIC GRAVITY >= 1.030 (1.005-1.030); URINE UROBILINOGEN 0.2 E.U./dl (0.2-1.0)
[2020-11-21 12:25] LABS: ABSOLUTE BASOPHILS 0.1 thou/uL (0.0-0.2); ABSOLUTE EOSINOPHILS 0.1 thou/uL (0.0-0.7); ABSOLUTE LYMPHOCYTES 0.9 thou/uL (0.8-5.3); ABSOLUTE MONOCYTES 0.4 thou/uL (0.0-1.2); ABSOLUTE NEUTROPHILS 2.7 thou/uL (1.6-8.1); BASOPHILS 1.2 %; EOSINOPHILS 3.5 %; HEMATOCRIT 40.7 % (37.0-47.0); HEMOGLOBIN 13.8 gm/dL (12.0-15.0); LYMPHOCYTES 21.9 %; MCH 28.9 pg (26.0-34.0); MCHC 33.9 g/dL (28.0-37.0); MCV 85.2 fL (80.0-100.0); MONOCYTES 8.8 %; NUCLEATED RBCS 0 /100WBC; PLATELET COUNT* 286 thou/uL (150-400); POLYS 64.6 %; RBC 4.77 mil/uL (4.20-5.00); RDW-CV 13.9 % (10.5-14.5); WBC 4.3 thou/uL (4.0-11.0)
[2020-11-21 12:34] LABS: CALCIUM 8.6 mg/dL (8.5-10.1); CREATININE 0.7 mg/dL (0.6-1.3); POTASSIUM 3.7 mmol/L (3.5-5.1)
[2020-11-21 12:39] LABS: ALBUMIN 3.7 g/dL (3.4-5.0); TOTAL BILIRUBIN 0.4 mg/dL (<0.1-1.0)
[2020-11-21 14:12] VITALS: BP 109/40
== END 2020-11-21 14:13 | disposition home or self-care (01) ==
LOC: M.ERS 11:51
PROVIDERS: Physician Assistant
DX: K50.90 Crohn's disease, unspecified, without complications (principal); Z20.822 Contact with and (suspected) exposure to COVID-19; R53.81 Other malaise; R59.1 Generalized enlarged lymph nodes; J45.909 Unspecified asthma, uncomplicated; K31.84 Gastroparesis; M06.9 Rheumatoid arthritis, unspecified; Z88.8 Allergy status to other drugs, medicaments and biological substances; Z88.2 Allergy status to sulfonamides; Z88.5 Allergy status to narcotic agent; Z88.1 Allergy status to other antibiotic agents; Z90.710 Acquired absence of both cervix and uterus; Z90.49 Acquired absence of other specified parts of digestive tract; Z87.01 Personal history of pneumonia (recurrent)

== ENCOUNTER → 2020-11-24 | Outpatient (CLI) | payer MEDICARE, OTHER | LOC: M.RAD 14:00 | PROVIDERS: ATTEND Orthopaedic Surgery | DX: M19.032 Primary osteoarthritis, left wrist (principal); M19.031 Primary osteoarthritis, right wrist; M19.042 Primary osteoarthritis, left hand; M19.041 Primary osteoarthritis, right hand; M79.642 Pain in left hand; M79.641 Pain in right hand ==

== ENCOUNTER → 2020-11-26 | Outpatient (CLI) | payer MEDICARE, OTHER | LOC: M.ULTRA 10:08 | PROVIDERS: ATTEND Nurse Practitioner Family | DX: E04.1 Nontoxic single thyroid nodule (principal); R59.0 Localized enlarged lymph nodes ==

== ENCOUNTER 2020-12-04 13:55 | Emergency (ER) | payer MEDICARE, OTHER ==
[~2020-12-04] VITALS: Ht 154.9 cm; Wt 59.0 kg
[2020-12-04] MEDS ORDERED: LEVO-T50 MCG PO (14:05)
[2020-12-04 14:30] LABS: ABSOLUTE EOSINOPHILS 0.2 thou/uL (0.0-0.7); ABSOLUTE MONOCYTES 0.6 thou/uL (0.0-1.2); ABSOLUTE NEUTROPHILS 2.9 thou/uL (1.6-8.1); BASOPHILS 0.9 %; EOSINOPHILS 3.2 %; HEMOGLOBIN 13.4 gm/dL (12.0-15.0); LYMPHOCYTES 21.7 %; MCH 28.8 pg (26.0-34.0); MCHC 33.5 g/dL (28.0-37.0); MONOCYTES 12.4 %; MPV 7.3 fl. (7.2-11.1); NUCLEATED RBCS 0 /100WBC; PLATELET COUNT* 299 thou/uL (150-400); POLYS 61.8 %; RBC 4.65 mil/uL (4.20-5.00); RDW-CV 14.2 % (10.5-14.5); WBC 4.8 thou/uL (4.0-11.0)
[2020-12-04] MEDS ORDERED: HYDROCODON-ACE1 EAC7 PO (14:34)
[2020-12-04 14:45] LABS: CALCIUM 8.6 mg/dL (8.5-10.1); CREATININE 0.7 mg/dL (0.6-1.3); POTASSIUM 3.9 mmol/L (3.5-5.1)
[2020-12-04 14:59] LABS: ALBUMIN 3.7 g/dL (3.4-5.0); CK-MB MASS 0.7 ng/mL (<0.5-3.6); TOTAL BILIRUBIN 0.3 mg/dL (<0.1-1.0); TOTAL PROTEIN 6.8 g/dL (6.4-8.2)
[2020-12-04 15:21] VITALS: BP 97/49
--- NOTE | 2020-12-05 10:41 | EKG ---
[place] [address] ELECTROCARDIOGRAM REPORT Name: SHRAVAN MACIAS Room: [facility]#: [id number] Admission: 12/04/20 Attend Phys: Discharge: 12/04/20 Date of : 58 Date of Service: 12/04/20 1429 Report #: [id number] THIS REPORT FOR: //name// [facility] ED Test Date: 2020-12-04 Test Time: 14:29:35 Pat Name: SHRAVAN AREVALO Department: Room: Gender: F Makeup Sales Advisor: TRISTON : 1960 Requested By: Yo Harding Order Number: [id number] MD: Khris Gutierrez Measurements Intervals [place] Rate: 75 P: 49 [place]: 150 QRS: -15 QRSD: 97 T: 34 QT: 394 QTc: 441 Interpretive Statements Sinus rhythm Borderline left axis deviation Low voltage, precordial leads Compared to ECG 04/05/2020 15:28:39 No significant changes Electronically Signed On 12-05-2020 10:41:41 CDT by Khris Gutierrez [email or web address] <ELECTRONICALLY SIGNED> By: Khris Gutierrez MD, [facility] 12/05/20 1041 1429 1429 Khris Gutierrez MD, [facility] /EPI
== END 2020-12-04 15:22 | disposition home or self-care (01) ==
LOC: M.ERS 13:55
PROVIDERS: Family Medicine
DX: M25.512 Pain in left shoulder (principal); J45.909 Unspecified asthma, uncomplicated; M06.9 Rheumatoid arthritis, unspecified; K50.90 Crohn's disease, unspecified, without complications; Z87.01 Personal history of pneumonia (recurrent); Z87.440 Personal history of urinary (tract) infections; Z88.5 Allergy status to narcotic agent; Z88.2 Allergy status to sulfonamides; Z88.8 Allergy status to other drugs, medicaments and biological substances; Z90.710 Acquired absence of both cervix and uterus; Z90.49 Acquired absence of other specified parts of digestive tract

== ENCOUNTER → 2020-12-06 | Outpatient (CLI) | payer MEDICARE, OTHER ==
[~2020-12-06] MED LIST changes: +HYDROCODON-ACE1 EAC7 PO; +LEVO-T50 MCG PO
--- NOTE | 2020-12-06 15:21 | 2DMMODE ---
[place] [address] 2 D/M-MODE ECHOCARDIOGRAM Name: SHRAVAN MACIAS Room: [facility]#: [id number] Admission: 12/06/20 Attend Phys: Rosalba Drake, Discharge: Date of : 58 Date of Service: 12/06/20 1521 Report #: [id number] THIS REPORT FOR: cc: Rufus Cavazos,Rufus Murcia,Jose Elias Nunez MD [facility] ~ APPROVED REPORT Study performed: 12/06/2020 13:56:46 EXAM: Comprehensive 2D, Doppler, and color-flow Echocardiogram Patient Location: Out-Patient BSA: 1.57 HR: 78 bpm BP: 138/72 mmHg Other Information Study Quality: Good Indications Pericardial Effusion 2D Dimensions IVSd: 9.20 (7-11mm) LVOT Diam: 19.25 (18-24mm) LVDd: 40.70 mm PWd: 8.37 (7-11mm) Ascending Ao: 27.99 (22-36mm) LVDs: 24.28 (25-40mm) Aortic Root: 24.07 mm Volumes Left Atrial Volume (Systole) LA ESV Index: 13.90 mL/m2 Aortic Valve AoV Peak Yasir.: 0.89 m/s AO Peak Gr.: 3.18 mmHg LVOT Max P.93 mmHg AO Mean Gr.: 1.89 mmHg LVOT Mean P.55 mmHg LVOT Max V: 0.86 m/s AO V2 VTI: 17.72 cm LVOT Mean V: 0.58 m/s BRYANT (VTI): 2.69 cm2 LVOT V1 VTI: 16.38 cm Mitral Valve E/A Ratio: 0.84 [place] [address] 2 D/M-MODE ECHOCARDIOGRAM Name: SHRAVAN MACIAS Room: [facility]#: [id number] Admission: 12/06/20 Attend Phys: Rosalba Drake, Discharge: Date of : 58 Date of Service: 12/06/20 1521 Report #: [id number] MV Decel. Time: 205.12 ms MV E Max Yasir.: 0.51 m/s MV PHT: 59.49 ms MVA (PHT): 3.70 cm2 TDI E/Lateral E': 4.64 E/Medial E': 4.25 Medial E' Yasir.: 0.12 m/s Lateral E' Yasir.: 0.11 m/s Pulmonary Valve PV Peak Yasir.: 0.76 m/s PV Peak Gr.: 2.33 mmHg Tricuspid Valve RAP Estimate: 5.00 mmHg TR Peak Gr.: 18.86 mmHg RVSP: 23.86 mmHg PA Pressure: 23.86 mmHg Left Ventricle The left ventricle is normal size. There is normal LV segmental wall motion. There is normal left ventricular wall thickness. Left ventricular systolic function is normal. The left ventricular ejection fraction is within the normal range. LVEF is 60-65%. Grade I - abnormal relaxation pattern. Right Ventricle The right ventricle is normal size. The right ventricular systolic function is normal. Atria The left atrium size is normal. The right atrium size is normal. Aortic Valve The aortic valve is normal in structure. No aortic regurgitation is present. There is no aortic valvular stenosis. Mitral Valve The mitral valve is normal in structure. Mild mitral regurgitation. No evidence of mitral valve stenosis. Tricuspid Valve The tricuspid valve is normal in structure. Mild tricuspid regurgitation[place] [address] 2 D/M-MODE ECHOCARDIOGRAM Name: SHRAVAN MACIAS Room: [facility]#: [id number] Admission: 12/06/20 Attend Phys: Rosalba Drake, Discharge: Date of : 58 Date of Service: 12/06/20 1521 Report #: [id number] The pulmonary valve is normal in structure. There is no pulmonic valvular regurgitation. Great Vessels The aortic root is normal in size. IVC is normal in size and collapses >50% with inspiration. Pericardium Small predominantly anterior pericardial effusion is noted. <Conclusion> The left ventricle is normal size. There is normal left ventricular wall thickness. Left ventricular systolic function is normal. The left ventricular ejection fraction is within the normal range. LVEF is 60-65%. Grade I - abnormal relaxation pattern. The right ventricle is normal size. The left atrium size is normal. The right atrium size is normal. The aortic valve is normal in structure. The mitral valve is normal in structure. Mild mitral regurgitation. The tricuspid valve is normal in structure. Mild tricuspid regurgitation. IVC is normal in size and collapses >50% with inspiration. Small predominantly anterior pericardial effusion is noted. There is normal LV segmental wall motion. <ELECTRONICALLY SIGNED> By: Jose Elias Sin MD, FACC 12/06/20 1521 1521 152 Jose Elias Sin MD, FACC /INF
== END ==
LOC: M.CRD 13:40
PROVIDERS: ATTEND Nurse Practitioner
DX: I08.1 Rheumatic disorders of both mitral and tricuspid valves (principal); I31.3 Pericardial effusion (noninflammatory)

== ENCOUNTER → 2020-12-21 | Outpatient (CLI) | payer MEDICARE, OTHER | LOC: M.CT 10:52 | PROVIDERS: ATTEND Nurse Practitioner Family | DX: C85.28 Mediastinal (thymic) large B-cell lymphoma, lymph nodes of multiple sites (principal); R06.02 Shortness of breath; E04.2 Nontoxic multinodular goiter; J98.11 Atelectasis ==

== ENCOUNTER → 2021-02-08 | Outpatient (CLI) | payer MEDICARE, OTHER | LOC: M.LAB 13:35 | PROVIDERS: ATTEND Orthopaedic Surgery | DX: Z01.812 Encounter for preprocedural laboratory examination (principal); M19.019 Primary osteoarthritis, unspecified shoulder; Z20.822 Contact with and (suspected) exposure to COVID-19 ==

== ENCOUNTER → 2021-05-05 | Outpatient (CLI) | payer MEDICARE, OTHER | LOC: M.RAD 11:57 | PROVIDERS: ATTEND Nurse Practitioner Family | DX: Z12.31 Encounter for screening mammogram for malignant neoplasm of breast (principal); M25.552 Pain in left hip ==

== ENCOUNTER → 2021-05-10 | Outpatient (CLI) | payer MEDICARE, OTHER | LOC: M.LAB 11:05 | PROVIDERS: ATTEND Orthopaedic Surgery | DX: Z01.812 Encounter for preprocedural laboratory examination (principal); Z20.822 Contact with and (suspected) exposure to COVID-19 ==

== ENCOUNTER 2021-05-12 12:36 | Emergency (ER) | payer MEDICARE, OTHER ==
[~2021-05-12] VITALS: Ht 154.9 cm; Wt 61.2 kg
[2021-05-12] MEDS ORDERED: OXYCODONE HCL10 MG PO ×2 (15:53→15:58)
[2021-05-12 16:10] VITALS: BP 109/74
== END 2021-05-12 16:11 | disposition home or self-care (01) ==
LOC: M.ERS 12:36
DX: G89.18 Other acute postprocedural pain (principal); M25.531 Pain in right wrist; M19.90 Unspecified osteoarthritis, unspecified site; F41.9 Anxiety disorder, unspecified; Z90.710 Acquired absence of both cervix and uterus; Z90.49 Acquired absence of other specified parts of digestive tract; J45.909 Unspecified asthma, uncomplicated; Z79.899 Other long term (current) drug therapy; Z88.2 Allergy status to sulfonamides; Z88.5 Allergy status to narcotic agent; Z88.8 Allergy status to other drugs, medicaments and biological substances; Z88.6 Allergy status to analgesic agent

== ENCOUNTER → 2021-06-08 | Outpatient (CLI) | payer MEDICARE, OTHER ==
[~2021-06-08] MED LIST changes: +OXYCODONE HCL10 MG PO
== END ==
LOC: M.ULTRA 10:40
PROVIDERS: ATTEND Nurse Practitioner Family
DX: E04.2 Nontoxic multinodular goiter (principal)